=== PATIENT | male | born 1995 | race Caucasian/White ===

== ENCOUNTER 2017-12-09 00:02 | Inpatient (IN) | payer OTHER ==
--- NOTE | 2017-12-09 00:14 | ED ---
Psych HPI - General Stated Complaint: Mental health Time Seen by Provider: 12/09/17 00:09 Source: patient, EMS Mode of arrival: EMS Limitations: no limitations - History of Present Illness Initial Comments: 22 -year-old male presents emergency department via EMS for psychiatric evaluation. Patient states he had an argument with his girlfriend. Patient states that he became enraged states that he was being in was planning to kill himself but states that he called police for help. Patient states that police pulled him over and he was brought to emergency department for evaluation. Patient states his been hospitalized in the past for psychiatric help. Patient denies any homicidal ideation denies illicit drug use no alcohol abuse. - Related Data Home Medications Medication Instructions Recorded Confirmed No Known Home Medications 12/09/17 12/09/17 Allergies Allergy/AdvReac Type Severity Reaction Status Date / Time No Known Allergies Allergy Verified 12/09/17 00:27 Review of Systems ROS Statement: Those systems with pertinent positive or pertinent negative responses have been documented in the HPI. ROS Other: All systems not noted in ROS Statement are negative. General Exam Limitations: no limitations General appearance: alert, in no apparent distress Head exam: Present: atraumatic, normocephalic, normal inspection Eye exam: Present: normal appearance, PERRL, EOMI. Absent: scleral icterus, conjunctival injection, periorbital swelling ENT exam: Present: normal exam, normal oropharynx, mucous membranes moist, TM's normal bilaterally, normal external ear exam Neck exam: Present: normal inspection, full ROM. Absent: tenderness, meningismus, lymphadenopathy Respiratory exam: Present: normal lung sounds bilaterally. Absent: respiratory distress, wheezes, rales, rhonchi, stridor Cardiovascular Exam: Present: regular rate, normal rhythm, normal heart sounds. Absent: systolic murmur, diastolic murmur, rubs, gallop, clicks Neurological exam: Present: alert, oriented X3, CN II-XII intact Psychiatric exam: Present: normal affect, normal mood Skin exam: Present: warm, dry, intact, normal color. Absent: rash Course Vital Signs 12/09/17 00:19 Temperature 98.0 F Pulse Rate 87 Respiratory 18 Rate Blood Pressure 146/81 O2 Sat by Pulse 98 Oximetry Medical Decision Making - Lab Data Lab Results 12/09/17 12/09/17 Range/Units 01:18 01:18 Urine Color Colorless Urine Appearance Clear (Clear) Urine pH 7.0 (5.0-8.0) Ur Specific [place] 1.006 (1.001-1.035) Urine Protein Negative (Negative) Urine Glucose (UA) Negative (Negative) Urine Ketones Negative (Negative) Urine Blood Negative (Negative) Urine Nitrite Negative (Negative) Urine Bilirubin Negative (Negative) Urine Urobilinogen <2.0 (<2.0) mg/dL Ur Leukocyte Esterase Negative (Negative) Urine Opiates Screen Not Detected (NotDetected) Ur Oxycodone Screen Not Detected (NotDetected) Urine Methadone Screen Not Detected (NotDetected) Ur Propoxyphene Screen Not Detected (NotDetected) Ur Barbiturates Screen Not Detected (NotDetected) U Tricyclic Antidepress Not Detected (NotDetected) Ur Phencyclidine Scrn Not Detected (NotDetected) Ur Amphetamines Screen Not Detected (NotDetected) U Methamphetamines Scrn Not Detected (NotDetected) U Benzodiazepines Scrn Not Detected (NotDetected) Urine Cocaine Screen Not Detected (NotDetected) U Marijuana (THC) Screen Not Detected (NotDetected) Disposition Clinical Impression: Depression, Suicidal ideation Disposition: TRANSFER TO PSYCH HOSP/UNIT Condition: Stable Referrals: Mag Vega MD [Primary Care Provider] - 1-2 days
[2017-12-09 01:35] LABS: Amphetamine Screen,Urine Not Detected (NotDetected); Barbiturate Screen,Urine Not Detected (NotDetected); Benzodiazepines Screen,Urine Not Detected (NotDetected); Cocaine Screen,Urine Not Detected (NotDetected); Methadone Screen, Urine Not Detected (NotDetected); Opiate Screen,Urine Not Detected (NotDetected); Oxycodone Screen, Urine Not Detected (NotDetected); Phencyclidine Screen,Urine Not Detected (NotDetected); Tricyclic Antidepressant,Urine Not Detected (NotDetected); Urn Cannabinoid Scrn Not Detected (NotDetected)
[2017-12-09 02:57] LABS: Basophils % (A) 0 %; Eosinophils # (A) 0.1 k/uL (0-0.7); Eosinophils % (A) 1 %; HCT 48.9 % (39.0-53.0); HGB 16.5 gm/dL (13.0-17.5); Lymphocytes # (A) 2.1 k/uL (1.0-4.8); Lymphocytes % (A) 27 %; MCH 28.3 pg (25.0-35.0); MCHC 33.6 g/dL (31.0-37.0); MCV 84.2 fL (80.0-100.0); Mean Platelet Volume 8.4; Monocytes # (A) 0.5 k/uL (0-1.0); Monocytes % (A) 6 %; Neutrophils # (A) 5.1 k/uL (1.3-7.7); Neutrophils % (A) 64 %; Platelet Count 170 k/uL (150-450); RBC 5.81 m/uL (4.30-5.90); RDW 12.6 % (11.5-15.5); WBC 7.9 k/uL (3.8-10.6)
[2017-12-09 02:57] LABS: Appearance,Urine Clear (Clear); Bilirubin,Urine Negative (Negative); Blood,Urine Negative (Negative); Color,Urine Colorless; Glucose,Urine (UA) Negative (Negative); Ketones,Urine Negative (Negative); Leukocyte Esterase,Urine Negative (Negative); Nitrite,Urine Negative (Negative); Protein,Urine Negative (Negative); Specific Gravity,Urine 1.006 (1.001-1.035); Urobilinogen,Urine <2.0 mg/dL (<2.0)
[2017-12-09 03:06] LABS: ALT 32 U/L (21-72); AST 20 U/L (17-59); Albumin 4.3 g/dL (3.5-5.0); Alkaline Phosphatase 58 U/L (38-126); Anion Gap 11 mmol/L; Blood Urea Nitrogen 10 mg/dL (9-20); Calcium 9.5 mg/dL (8.4-10.2); Carbon Dioxide 23 mmol/L (22-30); Chloride 105 mmol/L (98-107); Glucose 125 mg/dL (74-99); Potassium 3.3 mmol/L (3.5-5.1); Sodium 139 mmol/L (137-145); Total Bilirubin 1.1 mg/dL (0.2-1.3); Total Protein 7.2 g/dL (6.3-8.2)
[2017-12-09] MEDS ORDERED: LORazepam 1 MG TAB PO PRN (15:18)
[2017-12-09] MEDS ORDERED: ACETAMINOPHEN TAB 325 MG TAB PO PRN (15:18)
[2017-12-09] MEDS ORDERED: MAGNESIUM HYDROXIDE 2,400 MG/10 ML CUP PO PRN (15:18)
[2017-12-09] MEDS ORDERED: ZIPRASIDONE 20 MG VIAL IM PRN (15:18)
[2017-12-09] MEDS ORDERED: MAG HYDROX/AL HYDROX/SIMETH 30 ML CUP PO PRN (15:18)
[2017-12-09] MEDS ORDERED: LORazepam 2 MG/ML INJ IM PRN (15:23)
[2017-12-09] MEDS ORDERED: POTASSIUM CHLORIDE ER 20 MEQ TAB.ER PO STA (20:56)
--- NOTE | 2017-12-09 21:02 | P.MDCNMH ---
History of Present Illness H&P Date: 12/09/17 Chief Complaint: medical management 22 year old male with no significant past medical history . patient presented due to depression and suicidal ideation, he was having thoughts of crashing his car, and decided to seek help before he hurts himself. patient claims that thsi is due to life stressors and social relationship that went south. he currently denies any medical concerns. he denies fevers, chills, headache, changes in his vision or hearing, chest pain, trouble breathing, coughing, abdominal pain, nausea vomiting, changes in his bowel or urinary habits. Review of Systems Pertinent positives as noted in HPI. All other systems were reviewed and are negative Past Medical History Past Medical History: No Reported History Additional Past Medical History / Comment(s): pt stated has had a pne vaccine but not sure of date. investment underwriter unable to verify date at time of this admit. History of Any Multi-Drug Resistant Organisms: None Reported Past Surgical History: No Surgical Hx Reported Past Anesthesia/Blood Transfusion Reactions: No Reported Reaction Additional Past Anesthesia/Blood Transfusion Reaction / Comment(s): clausterphobia Past Psychological History: Depression Additional Psychological History / Comment(s): pt stated he is independant. lives alone in [facility]. 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 Smoking Status: Current every day smoker Past Alcohol Use History: None Reported Additional Past Alcohol Use History / Comment(s): started smoking at age 14 smokes 1 ppd Past Drug Use History: None Reported - Past Family History Mother History Unknown: Yes Father Additional Family Medical History / Comment(s): etoh abuse Medications and Allergies Home Medications Medication Instructions Recorded Confirmed Type No Known Home Medications 12/09/17 12/09/17 History Allergies Allergy/AdvReac Type Severity Reaction Status Date / Time No Known Allergies Allergy Verified 12/09/17 15:25 Physical Exam Vitals: Vital Signs Temp Pulse Pulse Resp BP BP Pulse Ox 12/09/17 15:35 98.2 F 74 16 114/63 12/09/17 15:24 57 L 18 120/65 97 12/09/17 10:07 60 18 133/72 98 12/09/17 04:40 97.6 F 62 17 125/80 98 12/09/17 00:19 98.0 F 87 18 146/81 98 Intake and Output 12/09/17 12/09/17 12/09/17 06:59 14:59 22:59 Other: Weight 96.615 kg 93.1 kg Constitutional: No acute distress, conversant, pleasant, well-nourished , well-developed Eyes: Anicteric sclerae, moist conjunctiva, no lid-lag Pupils equal round reactive to light ENMT: NC/AT Oropharynx clear, no erythema, exudates Neck: Supple, FROM, no masses, or JVD No carotid bruits No thyromegaly Lungs: Clear to auscultation Clear to percussion Normal respiratory effort, no accessory muscle use Cardiovascular: Heart regular in rate and rhythm, No murmurs, gallops, or rubs No peripheral edema Abdominal: Soft Nontender, no guarding, rebound or rigidity Abdomen moving with respiration Normoactive bowel sounds No hepatomegaly, No splenomegaly No palpable mass No abdominal wall hernia noted Skin: Normal temperature, tone, texture, turgor No induration No subcutaneous nodules No rash, lesions No ulcers Extremities: No digital cyanosis No clubbing Pedal pulses intact and symmetrical Radial pulses intact and symmetrical No calf tenderness Psychiatric: Alert and oriented to person, place and time Appropriate affect fair judgment Neuro Muscles Strength 5/5 in all 4 extremities Sensation to light touch grossly present throughout Cranial nerves II-XII grossly intact No focal sensory deficits Lymphatics: no palpable cervical or supraclavicular , or inguinal lymph nodes Cranial Nerve Examination - Cranial Nerves Cranial Nerve II- Optic: Intact Cranial Nerve III- Oculomotor: Intact Cranial Nerve IV- Trochlear: Intact Cranial Nerve V- Trigeminal: Intact Cranial Nerve - Abducens: Intact Cranial Nerve VII- Facial: Intact Cranial Nerve VIII- Auditory: Intact Cranial Nerve IX- Glossopharyngeal: Intact Cranial Nerve X- Vagus: Intact Cranial Nerve XI- Accessory: Intact Cranial Nerve XII- Hypoglossal: Intact Results CBC & Chem 7: 12/09/17 02:49 12/09/17 02:49 Labs: Abnormal Lab Results - Last 24 Hours (Table) 12/09/17 Range/Units 02:49 Potassium 3.3 L (3.5-5.1) mmol/L Glucose 125 H (74-99) mg/dL Assessment and Plan Assessment: 22-year-old male with no significant past medical history presented to hospital due to suicidal ideation and depression. Medicine was consulted for medical management. Patient was found to have hypo-kalemia which will be replaced orally and followed up next morning. Plan: Depressed mood Suicidal ideation Suicide precautions Management per psych Hypokalemia Replace by mouth Follow-up levels Follow-up magnesium level Patient is low risk for DVT patient is ambulatory Thank you for allowing us to participate in the care of this patient. We will follow peripherally. Do not hesitate to contact us with questions. Someone can be reached from the [facility] hospitalist group at all hours of the day at [phone].
--- NOTE | 2017-12-10 13:31 | P.HP ---
Psychiatric H&P - . H&P Date: 12/10/17 History & Physical: IDENTIFYING DATA: The patient is a 22-year-old single male admitted to the psychiatric unit voluntarily with complaints of suicidal ideation. HISTORY OF PRESENT ILLNESS: He stated that he became emotionally overwhelmed and had thoughts of suicide on Friday prior to admission. He described an ambivalent relationship with girlfriend and on the day he presented to the emergency room she called him in the morning and told him that she loves him and wishes to work on their relationship. Later in the day she sent him a picture of his best friend kissing her on the cheek. In the text she told him that the relationship was over. He became emotionally distraught and talked about driving dangerously and having the thought of crashing his car. He called the police who arranged EMS to transport him to the emergency room. He complained that distressed after he discovered "a couple months ago" that his "best friend" was having sex with his fiancee. They have been dating for 3 years. He proposed and she excepted the proposal in October of this year. They moved in together one month after the proposal. Apparently the infidelity occurred one month after they began living together. He described overwhelming emotions regarding their relationship and recurrent arguments and reconciliations. However, he denied persistent sadness hopelessness or worthlessness. He feels helpless in controlling his emotional distress. He did not express feelings of guilt or self-reproach. He has difficulty falling and remaining asleep. However, he reported no impairment in work. He occasionally feels tense and nervous but denied experiencing persistent anxiety that interfered with his ability to function. He denied periods of anxiety consistent with panic attacks. He perseverates over their relationship but did not express clear obsessions or compulsions. He denied periods of elevated mood or sustained irritability consistent with vishnu or hypomania. He denied psychotic symptoms such as auditory, visual or olfactory hallucinations ideas reference, thought insertion etc. He denied use of drugs or alcohol. PAST PSYCHIATRIC HISTORY: He had one prior psychiatric hospitalization at [facility] when he was 19 years old. This occurred during the period of conflict with his grandparents and his mother resulting then ordering him to leave. He described thoughts of suicide but denied any attempt. He is been in outpatient treatment through [facility]. He met with a counselor, Nancy. He stated that he discontinued counseling "several months ago" but is planning to reengage in treatment. He stated that his primary care provider has prescribed several medications. He does not remember the names but alleged that none of whom have been helpful in reducing his anxiety. PAST MEDICAL HISTORY: He is no history of major medical illness season. ALLERGIES: NO KNOWN DRUG ALLERGIES. SUBSTANCE USE HISTORY: He describes social use of alcohol. He denied use of drugs to get high, help him sleep or changes mood. He has not participated in a substance abuse treatment program. FAMILY PSYCHIATRIC/SUBSTANCE USE HISTORY: His father had history of alcohol use problems. He denied a history family history of psychiatric problems. LEGAL HISTORY: None. SOCIAL HISTORY: His born in [place] and raised by his mother and stepfather. He moved to [place] at 17 to live with his grandparents. He was in special education classes and graduated from high school. He received no additional education or training after high school. 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 He lives alone in the apartment in [facility]. He reports a supportive relationship with his grandparents and with his mother. MENTAL STATUS EXAM: He presented as a tall neatly groomed and casually dressed young male who was pleasant on approach. He made eye contact and attended to the interview. He had no distinguishing features or prominent physical abnormalities. He had a bright facial expression. He is alert and oriented to person, place and time. He showed no abnormality of psychomotor activity. He was not agitated or restless. His speech was slightly dysarthric but had normal rate, rhythm and volume. His affect was anxious but stable and appropriate. He denied current suicidal ideation or wishes. He denied homicidal ideation. He denied such depressive cognitions as hopelessness, helplessness or worthlessness. He ruminated about the circumstances that led to this admission and the conflict with his girlfriend. He did not express phobias, ideas reference, paranoid ideation or delusions. His thinking was abstract and associations were coherent, logical and goal directed. He did not express clang associations, perseverations, neologisms or blocking. He denied hallucinations and did not appear to be responding to internal stimuli. Global impression of intellect is average. He is aware of his illness and need for mental health treatment. STRENGTHS: Supportive family, stable employment, stable housing. WEAKNESSES: Poor coping skills, relationship conflict. IMPRESSION: He is a 22-year-old single male with a possible mild intellectual disability. He presented to the psychiatric unit voluntarily with increasing anxiety and suicidal ideation in the context of a breakup of a long- term relationship. He has history of prior psychiatric hospitalization but no suicide attempts. He is anxious and distress over the breakup with his ex- girlfriend. He is denying current suicidal ideation, intent or plan. He is denying symptoms consistent with a major depressive disorder. There is no evidence of psychosis. There is no history of abuse of alcohol or drugs. His presentation appears to be related to an identifiable stress and the severity of his reaction may be related to his intellectual disability and/or poor problem-solving skills. He should be evaluated and inpatient basis until we are certain that he does not pose a risk for self harm. 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 Safety precautions. Obtain collateral information from family. solid waste collection worker to complete initial psychosocial assessment. Consult medicine for initial physical exam and medical history. Evaluate need for antidepressant and/or antianxiety medications. Encourage participation in therapeutic groups and activities. Evaluate clinical status response to treatment daily basis. Allergies Allergy/AdvReac Type Severity Reaction Status Date / Time No Known Allergies Allergy Verified 12/09/17 15:25 Vital Signs Temp 98.0 F 12/10/17 06:30 Pulse 48 L 12/10/17 06:30 Resp 14 12/10/17 06:30 BP 109/59 12/10/17 06:30 Pulse Ox 97 12/09/17 15:24 Intake & Output 12/09/17 12/10/17 12/10/17 18:59 06:59 18:59 Weight 93.1 kg Laboratory Last Values WBC 7.9 k/uL (3.8-10.6) 12/09/17 02:49 RBC 5.81 m/uL (4.30-5.90) 12/09/17 02:49 Hgb 16.5 gm/dL (13.0-17.5) 12/09/17 02:49 Hct 48.9 % (39.0-53.0) 12/09/17 02:49 MCV 84.2 fL (80.0-100.0) 12/09/17 02:49 MCH 28.3 pg (25.0-35.0) 12/09/17 02:49 MCHC 33.6 g/dL (31.0-37.0) 12/09/17 02:49 RDW 12.6 % (11.5-15.5) 12/09/17 02:49 Plt Count 170 k/uL (150-450) 12/09/17 02:49 Neutrophils % 64 % 12/09/17 02:49 Lymphocytes % 27 % 12/09/17 02:49 Monocytes % 6 % 12/09/17 02:49 Eosinophils % 1 % 12/09/17 02:49 Basophils % 0 % 12/09/17 02:49 Neutrophils # 5.1 k/uL (1.3-7.7) 12/09/17 02:49 Lymphocytes # 2.1 k/uL (1.0-4.8) 12/09/17 02:49 Monocytes # 0.5 k/uL (0-1.0) 12/09/17 02:49 Eosinophils # 0.1 k/uL (0-0.7) 12/09/17 02:49 Basophils # 0.0 k/uL (0-0.2) 12/09/17 02:49 Sodium 139 mmol/L (137-145) 12/09/17 02:49 Potassium 3.3 mmol/L (3.5-5.1) L 12/09/17 02:49 Chloride 105 mmol/L (98-107) 12/09/17 02:49 Carbon Dioxide 23 mmol/L (22-30) 12/09/17 02:49 Anion Gap 11 mmol/L 12/09/17 02:49 BUN 10 mg/dL (9-20) 12/09/17 02:49 Creatinine 0.90 mg/dL (0.66-1.25) 12/09/17 02:49 Est GFR (CKD-EPI)AfAm >90 (>60 ml/min/1.73 sqM) 12/09/17 02:49 Est GFR (CKD-EPI)NonAf >90 (>60 ml/min/1.73 sqM) 12/09/17 02:49 Glucose 125 mg/dL (74-99) H 12/09/17 02:49 Calcium 9.5 mg/dL (8.4-10.2) 12/09/17 02:49 Total Bilirubin 1.1 mg/dL (0.2-1.3) 12/09/17 02:49 AST 20 U/L (17-59) 12/09/17 02:49 ALT 32 U/L (21-72) 12/09/17 02:49 Alkaline Phosphatase 58 U/L (38-126) 12/09/17 02:49 Total Protein 7.2 g/dL (6.3-8.2) 12/09/17 02:49 Albumin 4.3 g/dL (3.5-5.0) 12/09/17 02:49 Urine Color Colorless 12/09/17 01:18 Urine Appearance Clear (Clear) 12/09/17 01:18 Urine pH 7.0 (5.0-8.0) 12/09/17 01:18 Ur Specific [place] 1.006 (1.001-1.035) 12/09/17 01:18 Urine Protein Negative (Negative) 12/09/17 01:18 Urine Glucose (UA) Negative (Negative) 12/09/17 01:18 Urine Ketones Negative (Negative) 12/09/17 01:18 Urine Blood Negative (Negative) 12/09/17 01:18 Urine Nitrite Negative (Negative) 12/09/17 01:18 Urine Bilirubin Negative (Negative) 12/09/17 01:18 Urine Urobilinogen <2.0 mg/dL (<2.0) 12/09/17 01:18 Ur Leukocyte Esterase Negative (Negative) 12/09/17 01:18 Urine Opiates Screen Not Detected (NotDetected) 12/09/17 01:18 Ur Oxycodone Screen Not Detected (NotDetected) 12/09/17 01:18 Urine Methadone Screen Not Detected (NotDetected) 12/09/17 01:18 Ur Propoxyphene Screen Not Detected (NotDetected) 12/09/17 01:18 Ur Barbiturates Screen Not Detected (NotDetected) 12/09/17 01:18 U Tricyclic Antidepress Not Detected (NotDetected) 12/09/17 01:18 Ur Phencyclidine Scrn Not Detected (NotDetected) 09/04/18 01:18 Ur Amphetamines Screen Not Detected (NotDetected) 12/09/17 01:18 U Methamphetamines Scrn Not Detected (NotDetected) 12/09/17 01:18 U Benzodiazepines Scrn Not Detected (NotDetected) 12/09/17 01:18 Urine Cocaine Screen Not Detected (NotDetected) 12/09/17 01:18 U Marijuana (THC) Screen Not Detected (NotDetected) 12/09/17 01:18 12/10/17 10:06 12/10/17 13:23
[2017-12-11 06:47] VITALS: BP 112/69; PULSE 64; RESP 16; TEMP 97.8
[2017-12-11 08:50] LABS: Anion Gap 7 mmol/L; Blood Urea Nitrogen 13 mg/dL (9-20); Calcium 9.5 mg/dL (8.4-10.2); Carbon Dioxide 29 mmol/L (22-30); Chloride 104 mmol/L (98-107); Cholesterol 158 mg/dL (<200); Glucose 92 mg/dL (74-99); HDL Cholesterol 46 mg/dL (40-60); LDL Cholesterol,Calculated 99 mg/dL (0-99); Magnesium 2.2 mg/dL (1.6-2.3); Potassium 4.7 mmol/L (3.5-5.1); Sodium 140 mmol/L (137-145); Triglycerides 64 mg/dL (<150)
--- NOTE | 2017-12-11 14:13 | P.DS ---
Providers Date of admission: 12/09/17 15:14 Attending physician: Saravanan Calvin MD Consults: 12/09/17 15:18 Consult Physician Routine Consulting Provider: Macey Alonzo Consult Reason/Comments: H&P for mental health consult Do you want consulting provider notified?: Yes Primary care physician: Mag Vega - Discharge Diagnosis(es) (1) Adjustment disorder with mixed disturbance of emotions and conduct Current Visit: Yes Status: Acute Priority: Medium (2) Suicidal ideation Current Visit: Yes Status: Resolved Priority: Medium (3) Mild intellectual disability Current Visit: Yes Status: Chronic Priority: Low Hospital Course: The patient is a 22-year-old single male admitted to the psychiatric unit voluntarily with complaints of suicidal ideation. He became emotionally overwhelmed and had thoughts of suicide on Friday prior to admission. He described variable relationship with girlfriend the day he presented to the emergency room she called him in the morning and told him that she loves him and wishes to work on their relationship. Later in the day she allegedly sent him a picture of his best friend kissing her on the cheek. In the attacks she told him that the relationship was over. He became emotionally distraught and talked about driving dangerously and having thoughts of crashing his car. He called the police arrange EMS transfer to emergency room. We admitted him to the psychiatric unit under the care of this bond writer. We provided a comprehensive biopsychosocial assessment. The rn medical inpatient services completed initial physical exam and medical history diagnosed hypokalemia and recommended oral potassium replacement. The repeat potassium on 12/11/2017 was 4.7. The patient participated in therapeutic groups and activities. He posed no management problem and required no emergency medications for behavioral dyscontrol. He was fixated on discharge as soon as he arrived on the unit. He has superficial understanding of circumstances that led to this hospitalization but agreed to reengage and individual therapy. The time of discharge she presented as a casually dressed and casually groomed 22-year-old male who was pleasant on approach. He made eye contact and attended to the interview. He had no distinguishing features or prominent physical abnormalities. He had a bright facial expression. He was alert and oriented to person, place and time. He showed no abnormality of psychomotor activity. His speech was spontaneous with normal rate, rhythm and volume. His affect was bright, stable and appropriate. He denied suicidal ideation or wishes. He denied homicidal ideation. He did not express phobias, ideas reference, paranoid ideation or delusional thoughts. His thinking was concrete but his associations were coherent, logical and goal directed. He denied hallucinations and did not appear to be responding to internal stimuli. Patient Condition at Discharge: Stable Plan - Discharge Summary Discharge Rx Participant: No New Discharge Prescriptions: Continue No Known Home Medications Discharge Medication List No Known Home Medications 12/09/17 [History] Follow up Appointment(s)/Referral(s): Mag Vega MD [Primary Care Provider] - 1-2 days Discharge Disposition: HOME SELF-CARE
[2017-12-11 19:13] LABS: Hemoglobin A1C 5.1 % (4.0-6.0)
== END 2017-12-11 14:47 | disposition home or self-care (01) | DRG 882 ==
LOC: EC 00:02 → 3MHU 15:14
PROVIDERS: ADMIT Psychiatry & Neurology Psychiatry; ATTEND Psychiatry & Neurology Psychiatry
DX: F43.25 Adjustment disorder with mixed disturbance of emotions and conduct (principal); R45.851 Suicidal ideations; F70 Mild intellectual disabilities; F17.210 Nicotine dependence, cigarettes, uncomplicated; E87.6 Hypokalemia
CPT/HCPCS: 36415; 80048; 80053; 80061; 80306; 81003; 82075; 83036; 83735; 84443; 85025; 99285

== ENCOUNTER 2021-01-06 21:55 | Emergency (ER) | payer MEDICAID, OTHER ==
[2021-01-06 22:07] VITALS: RESP 18
[2021-01-06 22:25] VITALS: BP 131/93; PULSE 90; TEMP 98.3
[2021-01-06] MEDS ORDERED: ALPRAZolam 0.25 MG TAB PO STA (23:34)
--- NOTE | 2021-01-07 00:14 | ED ---
Anxiety HPI - General Chief Complaint: Dizziness Stated Complaint: Anxiety Time Seen by Provider: 01/06/21 22:44 Source: patient, EMS, RN notes reviewed Mode of arrival: EMS Limitations: no limitations - History of Present Illness Initial Comments: Patient is a 25-year-old male with history of anxiety, presenting to the emergency department via EMS after starting on some anxiety at home. He was concerned he started having a panic attack. Patient states he has been under a lot of stress recently. He states over the past few nights she has not been sleeping real well. He denies any drug or alcohol use. Denies any suicidal or homicidal thoughts. He denies any chest pains or shortness of breath, no fevers or chills, no nausea or vomiting. Patient has no further complaints at this time. - Related Data Home Medications: Previous Rx's Medication Instructions Recorded ALPRAZolam [Xanax] 0.25 mg PO BID PRN #6 tab 01/07/21 Allergies/Adverse Reactions: Allergies Allergy/AdvReac Type Severity Reaction Status Date / Time No Known Allergies Allergy Verified 12/09/17 15:25 Review of Systems ROS Statement: Those systems with pertinent positive or pertinent negative responses have been documented in the HPI. ROS Other: All systems not noted in ROS Statement are negative. Past Medical History Past Medical History: No Reported History Additional Past Medical History / Comment(s): pt stated has had a pne vaccine but not sure of date. 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 History of Any Multi-Drug Resistant Organisms: None Reported Past Surgical History: No Surgical Hx Reported Past Anesthesia/Blood Transfusion Reactions: No Reported Reaction Additional Past Anesthesia/Blood Transfusion Reaction / Comment(s): clausterphobia Past Psychological History: Depression Smoking Status: Never smoker Past Alcohol Use History: None Reported Past Drug Use History: None Reported - Past Family History Mother History Unknown: Yes Father Additional Family Medical History / Comment(s): etoh abuse General Exam - General Exam Comments Initial Comments: GENERAL: Patient is well-developed and well-nourished. Patient is nontoxic and in no acute distress, does appear mildly anxious. HEAD: Atraumatic, normocephalic. EYES: Pupils equal round and reactive to light, extraocular movements intact, sclera anicteric, conjunctiva are normal. Eyelids were unremarkable. ENT: Moist mucous membranes. NECK: Normal range of motion, supple without lymphadenopathy or JVD. LUNGS: Unlabored respirations. Breath sounds clear to auscultation bilaterally and equal. No wheezes rales or rhonchi. HEART: Regular rate and rhythm without murmurs, rubs or gallops. ABDOMEN: Soft, nontender, normoactive bowel sounds. No guarding, no rebound. No masses appreciated. : Deferred MUSCULOSKELETAL: Normal extremities with adequate strength and normal range of motion, no pitting or edema. No clubbing or cyanosis. NEUROLOGICAL: Patient is alert and oriented x 3. PSYCH: Normal mood, mildly anxious. SKIN: Warm, Dry, normal turgor, no rashes or lesions noted. Limitations: no limitations Course Vital Signs 01/06/21 01/06/21 22:03 22:19 Temperature 98 F 98.3 F Pulse Rate 78 90 Respiratory 18 18 Rate Blood Pressure 147/89 131/93 O2 Sat by Pulse 98 99 Oximetry Medical Decision Making - Medical Decision Making Patient is a 25-year-old male with history of anxiety presenting with an acute anxiety attack prior to arrival. His vitals are stable, exam is unremarkable. He is no suicidal or homicidal thoughts. Patient was given a small dose of Xanax here in the ER and will be given a short prescription for use at nighttime. He does have follow-up with [facility]. He is agreeable to this plan of care is stable for discharge. Return parameters were discussed with him and he verbalized understanding. Disposition Clinical Impression: Anxiety Disposition: HOME SELF-CARE Condition: Stable Instructions (If sedation given, give patient instructions): Generalized Anxiety Disorder (ED) Additional Instructions: Please return to the Emergency Department if symptoms worsen or any other concerns. Recommend following up with [facility] as already discussed. Recommend taking Xanax at night to help with anxiety and to help with sleep. Prescriptions: ALPRAZolam [Xanax] 0.25 mg PO BID PRN #6 tab PRN Reason: Anxiety Is patient prescribed a controlled substance at d/c from ED?: Yes When asked, does pt state using other controlled substances?: No If prescribed controlled substance>3 days was MAPS reviewed?: Prescribed <3 Days Referrals: Mag Vega MD [Primary Care Provider] - 1-2 days Time of Disposition: 00:16
== END 2021-01-07 00:19 | disposition home or self-care (01) ==
LOC: EC 21:55
DX: F41.9 Anxiety disorder, unspecified (principal); F32.9 Major depressive disorder, single episode, unspecified
CPT/HCPCS: 99283